=== PATIENT | male | born 1980 | race Two or more races ===

== ENCOUNTER 2020-12-18 10:59 | Outpatient (REF) | payer OTHER, SELFPAY | END 2020-12-18 11:00 | disposition home or self-care (01) | LOC: HO.LAB 10:59 | PROVIDERS: Visit Provider Internal Medicine | DX: Z20.822 Contact with and (suspected) exposure to COVID-19 (principal) | CPT/HCPCS: C9803; U0003; U0005 ==

== ENCOUNTER 2021-02-23 02:29 | Emergency (ER) | payer OTHER, SELFPAY ==
[2021-02-23] VITALS (7 sets, daily range): BP systolic 161–203; BP diastolic 99–117; PULSE 60–72; RESP 12–18; TEMP 36.3–36.6; O2SAT 97–98; BMI 45.6
--- NOTE | ~2021-02-23 | CT_ITS ---
EXAMINATION: CT RIGHT ELBOW CLINICAL INFORMATION: Evaluate for tendon rupture COMPARISON: None Specifically, no radiographs for comparison TECHNIQUE: Multidetector CT. Examination of the right elbow was performed without contrast. Reformatting in multiple planes. This CT examination was performed using dose optimization techniques as appropriate, variously including the following: *Automated exposure control *Adjustment of mA and/or kV according to patient size (this includes techniques or standardized protocols for targeted exams where dose is matched to indication/reason for exam; i.e. extremities or head) *Use of iterative reconstruction technique ESTIMATED DOSE: DLP 226 mGy-cm. FINDINGS: There is no acute fracture demonstrated. No significant hemarthrosis. There is no loose body. CT is not sensitive in detecting tendon abnormalities. There is some soft tissue stranding associated with the region of the triceps insertion. There may be some overlying skin thickening. No gross disruption of the triceps attachment. CT/CT elbow RT wo con IMPRESSION: No definite fracture or dislocation. No opaque loose body. Soft tissue stranding around the olecranon. No gross complete tendon disruption is demonstrated. Please note that tendon pathology is not optimally visualize using CT. MRI may be helpful Clinical correlation and direct radiographic correlation may be helpful
[2021-02-23] MEDS: Acetaminophen 325 MG TABLET 650 MG PO (05:21)
[2021-02-23] MEDS: Ketorolac Tromethamine 60 MG/2 ML VIAL IM (05:24)
--- NOTE | 2021-02-23 05:32 | PC.NURSE ---
PT REPORTS HE WAS MOVING A TV, FELT A POP AND EXPERIENCED RIGHT UPPER ARM PAIN. PT UNABLE TO EXTEND AT ELBOW JOINT. RIGHT HAND IS STARTING TO SWELL. PT DOES NOT HAVE LARGE AMOUNT OF SWELLING UNDER SKIN IN BICEP AREA.
--- NOTE | 2021-02-23 06:01 | PC.NURSE ---
PT ABLE TO LAY ON STRETCHER AND TRY TO FALL ASLEEP. REPORTS SOME RELIEF FROM MEDICATION.
--- NOTE | 2021-02-23 06:36 | ED_ITS ---
HPI - Extremity Problem General Chief complaint: Extremity Injury, Upper Stated complaint: R Arm pain Time Seen by Provider: 02/23/21 06:25 Source: patient Mode of arrival: ambulatory Limitations: no limitations History of Present Illness HPI Narrative: Patient comes emergency room complaining of right arm pain. Patient states he was to attempting to mount a television, patient over stretch his arm, heard a loud popping, complaining of intense pain in the forearm anterior aspect. Patient denies elbow pain, no wrist or shoulder pain. Patient states he has intense pain when he flexes his arm in the bicipital area and on the distal aspect below the elbow Related Data Allergies Allergy/AdvReac Type Severity Reaction Status Date / Time No Known Allergies Allergy Unverified 02/02/20 15:23 Review of Systems Review of Systems: Constitutional : No Weight loss, No Fever, No Chills, No Night Sweats, No Fatigue, No Malaise ENT/Mouth : No Hearing loss, No Ear Pain, No Nasal Congestion, No Sinus Pain, No Hoarseness, No sore throat, No Rhinorrhea, No Swallowing Difficulty Eyes: No Eye Pain, No Swelling, No Redness, No Foreign Body, No Discharge, No Vision Changes Cardiovascular : No Chest Pain, No SOB, No Dyspnea on Exertion, No Orthopnea, No Edema, No Palpitations Respiratory : No Cough, No Sputum, No Wheezing, No Smoke Exposure, No Dyspnea Gastrointestinal : No Nausea, No Vomiting, No Diarrhea, No Constipation, No abdominal Pain, No Hematochezia, No Melena Genitourinary : no irregular bleeding, No Dysuria, No Urinary Frequency, No Hematuria, No Urinary Incontinence, No Urgency, No Flank Pain, No Urinary Flow Changes, No Hesitancy Musculoskeletal complaining of forearm pain volar aspect, No Myalgias, No Joint Swelling Skin : No Skin Lesions, No rash Neuro : No Weakness, No Numbness, No Paresthesias, No Loss of Consciousness, No Dizziness, No Headache Psych : No Anxiety/Panic, No Depression, No SI/HI/AH/VH, No Social Issues, Heme/Lymph: No Bruising, No Bleeding,No Lymphadenopathy Endocrine : No Polyuria, No Polydipsia, No Temperature Intolerance PMFSH Social History Social History Advance Directives: No Physical Exam Vital Signs: Vital Signs: Last Vital Signs Temp 97.7 F 02/23/21 03:11 Pulse 72 02/23/21 03:11 Resp 18 02/23/21 03:11 BP 175/111 H 02/23/21 03:11 Pulse Ox 98 02/23/21 03:11 Body Mass Index 45.6 Const: Other: Appearance: Alert. Oriented X3. No acute distress. Eyes: Pupils equal, round and reactive to light. ENT: Pharynx normal. Neck: Normal inspection. Neck supple. No lymph nodes noted. No crepitus CVS: Normal heart rate and rhythm. Pulses normal. Normal S1 and S2 Respiratory: No respiratory distress. Breath sounds normal. No Wheezing. No rales Abdomen: Soft and nontender. No rigidity. No distention. Skin: Skin warm and dry. Normal skin color. Normal skin turgor. Extremities: No lower extremity edema. Pain to palpation on the forearm volar aspect, no pain to palpation over elbow/wrist/shoulder Neuro: Oriented X 3. No motor deficit. No sensory deficit. Moving all extermities. No slurred speech. Course Course Course Narrative: It is possible that patient may have a tendon rupture. CT scan pending. Sign-out given to . Patient will likely need to follow-up with orthopedics Discharge Plan Discharge Clinical Impression: Forearm pain Patient Disposition: Home, Self-Care Instructions: Arm Pain (ED) Additional Instructions: Please follow-up with your primary care physician tomorrow. If you have any worsening or new symptoms, please return to the emergency room or call 911 Referrals: Kaylee Nassar PA-C [Physician [employer] Commissioner] - 2 days
--- NOTE | 2021-02-23 08:49 | ED_ITS ---
HPI - Extremity Problem General Chief complaint: Extremity Injury, Upper Stated complaint: R Arm pain Time Seen by Provider: 02/23/21 06:25 Source: patient Mode of arrival: ambulatory Limitations: no limitations Related Data Allergies Allergy/AdvReac Type Severity Reaction Status Date / Time No Known Allergies Allergy Unverified 02/02/20 15:23 [facility] Social History Social History Advance Directives: No Physical Exam Vital Signs: Vital Signs: Last Vital Signs Temp 97.7 F 02/23/21 03:11 Pulse 72 02/23/21 03:11 Resp 16 02/23/21 06:58 BP 175/111 H 02/23/21 03:11 Pulse Ox 98 02/23/21 03:11 Body Mass Index 45.6 MDM - Extremity (Nontraumatic) MDM Narrative Medical decision making narrative: CT scan of the elbow showed no evidence of fracture. Will have patient follow-up outpatient with orthopedics. Tendon injury cannot be excluded. Currently patient is in stable condition. Skin intact. Sensation intact. Distal motor intact. In stable condition. Discharge Plan Discharge Clinical Impression: Forearm pain Qualifiers: Laterality: right Qualified Code(s): M79.631 - Pain in right forearm Patient Disposition: Home, Self-Care Instructions: Arm Pain (ED) Additional Instructions: Please follow-up with your primary care physician tomorrow. If you have any worsening or new symptoms, please return to the emergency room or call 911 Referrals: Kaylee Nassar PA-C [Physician Clinical Sciences Professor] - 2 days Stand Alone Forms: Work/School Release
--- NOTE | 2021-02-23 09:04 | PC.NURSE ---
Patient awake and alert. skin pwd, resp even and non labored. patient hypertensive, states he hasnt taken his morning meds yet. Medications and doses confirmed with . Dr Tan aware
[2021-02-23] MEDS: lisinopriL 40 MG TABLET PO (09:14)
[2021-02-23] MEDS: hydroCHLOROthiazide 25 MG TABLET PO (09:15)
[2021-02-23] MEDS: amLODIPine Besylate 10 MG TABLET PO (09:15)
== END 2021-02-23 12:12 | disposition home or self-care (01) ==
PROVIDERS: Emergency Provider Emergency Medicine
DX: M79.631 Pain in right forearm (principal); Z79.899 Other long term (current) drug therapy
CPT/HCPCS: 73200; 96372; 99284; J1885

== ENCOUNTER 2021-04-23 14:37 | Outpatient (REF) | payer OTHER, SELFPAY ==
[2021-04-23 15:46] LABS: COVID-19 Test Negative (Negative)
== END 2021-04-23 14:38 | disposition home or self-care (01) ==
LOC: HO.LAB 14:37
PROVIDERS: Visit Provider Internal Medicine
DX: Z20.822 Contact with and (suspected) exposure to COVID-19 (principal)
CPT/HCPCS: 36415; 87635; C9803

== ENCOUNTER 2022-08-22 01:32 | Emergency (ER) | payer OTHER, SELFPAY ==
[2022-08-22 01:33] VITALS: BP 146/103; PULSE 104; RESP 18; TEMP 36.6; O2SAT 96; BMI 49.9
[2022-08-22 01:37] VITALS: BP 161/102
[2022-08-22 02:18] LABS: MANUAL DIFF FLAG NO
[2022-08-22 02:20] LABS: Basophils Percent Auto 0.2 % (0-2); Eosinophils Absolute Auto 0.3 X10*3/uL (0.0-0.4); Eosinophils Percent Auto 2.8 % (0-4); Hemoglobin 12.9 g/dl (14.0-18.0); Imm Gran Abs Auto 0.02 X10*3/uL (0.00-0.03); Imm Gran Pct Auto 0.2 % (0.0-0.4); Lymphocytes Absolute Auto 3.6 X10*3/uL (1.2-4.9); Lymphocytes Percent Auto 36.8 % (20-40); Mean Corpuscular HGB Conc 33.9 g/dl (31.0-36.0); Mean Corpuscular Hemoglobin 28.4 pg (27.0-33.0); Mean Corpuscular Volume 83.7 fL (80.0-98.0); Mean Platelet Volume 12.3 fL (9.4-12.4); Monocytes Absolute Auto 0.8 X10*3/uL (0.1-1.2); Monocytes Percent Auto 7.9 % (2-11); Neutrophils Percent Auto 52.1 % (45-73); Platelet Count 204 X10*3/uL (160-400); Red Blood Count 4.54 X10*6/uL (4.60-5.80); Red Cell Distribution Width 13.6 % (11.0-16.0); White Blood Count 9.7 X10*3/uL (4.8-10.8)
--- NOTE | 2022-08-22 02:22 | MHC.EDTECH ---
PT made aware that urine sample is needed. PT states he does not need to go at the moment
[2022-08-22 02:40] LABS: Alanine Aminotransferase 39 U/L (0-40); Albumin Level 3.7 g/dL (3.5-5.0); Alkaline Phosphatase 102 U/L (39-117); Anion Gap 10 (12-20); Aspartate Amino Transferase 18 U/L (5-37); Bilirubin Direct < 0.2 mg/dL (0.0-0.5); Bilirubin Total 0.3 mg/dL (0.0-1.0); Blood Urea Nitrogen 19 mg/dL (9-16); Calcium 8.8 mg/dL (8.4-10.2); Carbon Dioxide 28 mmol/L (22-29); Chloride 106 mmol/L (96-108); Estimated Glomerular Filt Rate > 60; Glucose Random 136 mg/dL (60-115); Lipase 15 U/L (8-78); Potassium 3.6 mmol/L (3.3-5.1); Sodium 140 mmol/L (135-145); Total Protein 6.3 g/dL (6.5-8.0)
[2022-08-22 03:51] VITALS: BP 138/89; PULSE 82; RESP 17; TEMP 36.6; O2SAT 98
[2022-08-22 04:27] LABS: Appearance Urine Clear; Color Urine Yellow; Glucose Urine UA Negative (Negative); Leukocyte Esterase Urine Negative (Negative); Nitrite Urine Negative (Negative); Specific Gravity - Urine >= 1.030 (1.005-1.025); Urine Blood Negative (Negative); Urine Ketones Trace mg/dL (Negative); Urine Protein Trace mg/dL (Neg-Trace)
--- NOTE | 2022-08-22 05:50 | ED.BACK ---
HPI - Back Pain/Injury General Chief Complaint: Back Pain/Injury Stated Complaint: Flank pain Time Seen by Provider: 08/22/22 05:42 Source: patient Mode of arrival: ambulatory Limitations: no limitations History of Present Illness HPI Narrative: 42-year-old male who presents emergency department for evaluation of left lower back pain that radiates to his left thigh. Patient states he has been having pain on off for months. He states that over the past 3 days the pain is been constant. He describes as a pressure-like pain with a burning in his left thigh. He denied numbness or weakness. He denied loss of bowel or bladder control. He denied fever, chills, nausea, vomiting or diarrhea. The patient states he did take some ibuprofen yesterday with no relief his pain. He denies any injury. Related Data Previous Rx's Medication Instructions Recorded acetaminophen 500 mg tablet 1,000 mg PO Q6H PRN fever or pain 08/22/22 (Tylenol Extra Strength) #20 tabs cyclobenzaprine 10 mg tablet 10 mg PO TID PRN muscle pain or 08/22/22 spasm #20 tabs ibuprofen 400 mg tablet 400 mg PO TID PRN fever or pain 08/22/22 #30 tabs Allergies Allergy/AdvReac Type Severity Reaction Status Date / Time No Known Allergies Allergy Verified 08/22/22 01:37 Review of Systems Review of Systems: Yes all other systems are reviewed and are negative [facility] Past Medical History [facility] Narrative: Past medical history: Hypertension, asthma. Past surgical history: None. Social history: Denies tobacco, alcohol and drug use. Social History Social History Alcohol intake: current Alcohol intake frequency: holidays/special occasions only Alcohol type: wine Smoked in Last 30 Days: No Use of substances other than those prescribed or required for medical reasons: No Advance Directives: No Advance Directives Information Provided: Yes Physical Exam Vital Signs: Vital Signs: Last Vital Signs Temp 98 F 08/22/22 03:51 Pulse 82 08/22/22 03:51 Resp 17 08/22/22 03:51 BP 138/89 08/22/22 03:51 Pulse Ox 98 08/22/22 03:51 O2 Del Method Room Air 08/22/22 03:51 BMI result Body Mass Index 49.9 Const: Other: Awake, alert, male patient, pleasant, cooperative in no distress, elevated BMI 49.9 HEENT: Head: Yes normal to inspection, Yes normocephalic and Yes atraumatic Ears: external ears normal General nose exam: Normal external nose present Face and sinus: Yes normal facial exam Mouth: Normal oral and palatal mucosa present Throat: Yes posterior oropharynx normal Eyes: General: appearance normal, both eyes and all related structures Pupils: Equal, round and reactive pupils present Neck: Neck: Yes normal visual inspection, Yes no lymphadenopathy, Yes trachea midline and Yes supple Chest: Chest palpation & inspection: normal inspection of the chest and normal palpation of entire chest wall Resp: Effort & Inspection: normal respiratory effort and able to speak in complete sentences Auscultation: clear to auscultation bilaterally Cardio: Rate: regular rate Rhythm: regular rhythm Heart sounds: S1 normal heart sound present, S2 normal heart sound present and no murmurs GI: Inspection: Yes normal to inspection Palpation (GI): Soft to palpation, nontender and no guarding Auscultation: normal bowel sounds Back/Spine/Pelvis: Other: Patient has tenderness palpation of his left-sided paraspinal muscles in the lumbar sacral area, there is no point vertebral tenderness, has positive straight leg raise on the left the negative straight leg raise on the right Skin: General skin exam: no rashes or lesions noted Neuro: Cranial nerves: Yes CN's II-XII intact bilaterally and Yes Equal, round and reactive pupils present Cognition (Neuro): normal cognition Motor exam (neuro): 5/5 motor strength present throughout Extrem: General: Yes normal to inspection Psych: Appearance: grossly normal Speech and movement: Normal speech and movement present Affect: normal affect Thought content: Normal thought content present Medical Decision Making Medical Decision Making MDM Narrative: 42-year-old male who presents emergency department for evaluation of left lower back pain radiating to his left thigh times several months with increased pain over the past 3 days. Patient has had no systemic symptoms. He has had no loss of bowel or bladder control. Vital signs did reveal an elevated blood pressure of 146/103 but he does have essential hypertension. He also had at elevated pulse of 104. Patient's exam did reveal pain with palpation of the left paraspinal muscles lumbar sacral area as well as a positive left straight leg raise. Patient's neurologic exam is otherwise nonfocal. My interpretation the patient's laboratory evaluation is as follows: CBC was normal, CMP revealed an elevated glucose of 136 otherwise unremarkable. Lipase was normal. Urinalysis was negative. Patient's presentation is most consistent with sciatica and I did discuss this with him. Patient was advised to take Tylenol and ibuprofen for his pain. He is also prescribed Flexeril for pain and spasm. He was given printed and verbal instructions discharged home. Differential Diagnosis Differential diagnosis includes was not limited to sciatica, lumbar radiculopathy, degenerative joint disease, degenerative disc disease Lab Data 08/22/22 02:14 08/22/22 02:14 Labs: Lab Results 08/22/22 08/22/22 08/22/22 Range/Units 02:14 02:14 04:20 WBC 9.7 (4.8-10.8) X10*3/uL RBC 4.54 L (4.60-5.80) X10*6/uL Hgb 12.9 L (14.0-18.0) g/dl Hct 38.0 L (42.0-52.0) % MCV 83.7 (80.0-98.0) fL MCH 28.4 (27.0-33.0) pg MCHC 33.9 (31.0-36.0) g/dl RDW 13.6 (11.0-16.0) % Plt Count 204 (160-400) X10*3/uL MPV 12.3 (9.4-12.4) fL Immature Gran % (Auto) 0.2 (0.0-0.4) % Neut % (Auto) 52.1 (45-73) % Lymph % (Auto) 36.8 (20-40) % [place] % (Auto) 7.9 (2-11) % Eos % (Auto) 2.8 (0-4) % Baso % (Auto) 0.2 (0-2) % Lymph # (Auto) 3.6 (1.2-4.9) X10*3/uL [place] # (Auto) 0.8 (0.1-1.2) X10*3/uL Eos # (Auto) 0.3 (0.0-0.4) X10*3/uL Baso # (Auto) 0.0 (0.0-0.2) X10*3/uL Abs Immat Gran (auto) 0.02 (0.00-0.03) X10*3/uL Absolute Neuts (auto) 5.0 (2.0-8.3) x10*3/uL Absolute Nucleated RBC 0.000 (0.0-0.012) X10*3/uL Nucleated RBC % (auto) 0.0 (0.0-0.2) /100WBC Sodium 140 (135-145) mmol/L Potassium 3.6 (3.3-5.1) mmol/L Chloride 106 (96-108) mmol/L Carbon Dioxide 28 (22-29) mmol/L Anion Gap 10 L (12-20) BUN 19 H (9-16) mg/dL Creatinine 0.98 (0.5-1.4) mg/dL Estim Creat Clear Calc 156.0 Estimated GFR > 60 Random Glucose 136 H (60-115) mg/dL Calcium 8.8 (8.4-10.2) mg/dL Total Bilirubin 0.3 (0.0-1.0) mg/dL Direct Bilirubin < 0.2 (0.0-0.5) mg/dL AST 18 (5-37) U/L ALT 39 (0-40) U/L Alkaline Phosphatase 102 (39-117) U/L Total Protein 6.3 L (6.5-8.0) g/dL Albumin 3.7 (3.5-5.0) g/dL Lipase 15 (8-78) U/L Urine Color Yellow Urine Appearance Clear Urine pH 6.0 (5.0-9.0) Ur Specific [place] >= 1.030 H (1.005-1.025) Urine Protein Trace (Neg-Trace) mg/dL Urine Glucose (UA) Negative (Negative) mg/dL Urine Ketones Trace (Negative) mg/dL Urine Blood Negative (Negative) Urine Nitrite Negative (Negative) Ur Leukocyte Esterase Negative (Negative) Discharge Plan Discharge Clinical Impression: Sciatica Qualifiers: Laterality: left Qualified Code(s): M54.32 - Sciatica, left side Patient Disposition: Home, Self-Care Instructions: Sciatica (ED) Additional Instructions: Your laboratory evaluation was unremarkable. Your urine test was negative for infection. Your symptoms are consistent with inflammation of the sciatic nerve (sciatica) Take ibuprofen 400 mg pills, 2 pills every 6 hours as needed for pain. Take Tylenol (acetaminophen) 500 mg pills, 2 pills every 6 hours as needed for pain. Take Flexeril (cyclobenzaprine) 10 mg pills, 1 pill every 6-8 hours as needed for pain or spasm. This medication will make you sleepy. Do not drive or work while taking this medication. Follow-up with your doctor in 2 days. Please return to the emergency department if your symptoms get worse or if you develop any symptoms that are concerning to you. Prescriptions: New cyclobenzaprine 10 mg tablet 10 mg PO TID PRN (Reason: muscle pain or spasm) Qty: 20 0RF acetaminophen [Tylenol Extra Strength] 500 mg tablet 1,000 mg PO Q6H PRN (Reason: fever or pain) Qty: 20 0RF ibuprofen 400 mg tablet 400 mg PO TID PRN (Reason: fever or pain) Qty: 30 0RF
[2022-08-22 06:01] VITALS: BP 148/96; PULSE 83; RESP 16; TEMP 36.6; O2SAT 97
== END 2022-08-22 06:34 | disposition home or self-care (01) ==
PROVIDERS: Emergency Provider Emergency Medicine Emergency Medical Services
DX: M54.32 Sciatica, left side (principal); M54.50 Low back pain, unspecified; Z79.899 Other long term (current) drug therapy
CPT/HCPCS: 36415; 80048; 80076; 81003; 83690; 85025; 99283; 99284

== ENCOUNTER 2022-11-26 22:48 | Emergency (ER) | payer OTHER, SELFPAY ==
--- NOTE | ~2022-11-26 | CT_ITS ---
EXAMINATION: CT HEAD WITHOUT CONTRAST CLINICAL INFORMATION: Left facial numbness, tingling COMPARISON: None available. TECHNIQUE: Contiguous axial imaging was performed from the skull base to vertex without intravenous administration of contrast. This CT examination was performed using dose optimization techniques as appropriate, variously including the following: *Automated exposure control *Adjustment of mA and/or kV according to patient size (this includes techniques or standardized protocols for targeted exams where dose is matched to indication/reason for exam; i.e. extremities or head) *Use of iterative reconstruction technique DLP: 1429 mGy-cm FINDINGS: There is no evidence of acute intracranial hemorrhage or territorial infarction. No abnormal mass-effect or midline shift is seen. Gonzalez to white matter differentiation is well preserved. No extra-axial fluid collections are identified. The ventricles are normal in size. There is no abnormal attenuation within the brain parenchyma. The osseous structures and soft tissues are normal. The mastoid air cells and visualized portions of the paranasal sinuses are well-aerated. CT/CT head/brain wo IV con IMPRESSION: No acute intracranial pathology.
--- NOTE | ~2022-11-26 | CT_ITS ---
EXAMINATION: CT ANGIOGRAM OF THE CHEST WITH AND WITHOUT CONTRAST (CT PULMONARY ANGIOGRAM FOR PE) CLINICAL INFORMATION: Reason for Exam Chest pain, shortness of breath, hypotensive COMPARISON: Chest x-ray 11/26/2022 TECHNIQUE: Prior to contrast administration, noncontrast localization images were obtained. Subsequently, multidetector volumetric imaging was performed from the thoracic inlet to below the diaphragms following the administration of 100 mL Omnipaque 350 intravenous contrast. No contrast reaction reported Sagittal, coronal, and MIP oblique sagittal reformatted images were obtained on the CT workstation, uploaded to PACS, and reviewed. This CT examination was performed using dose optimization techniques as appropriate, variously including the following: *Automated exposure control *Adjustment of mA and/or kV according to patient size (this includes techniques or standardized protocols for targeted exams where dose is matched to indication/reason for exam; i.e. extremities or head) *Use of iterative reconstruction technique Total exam dose-length product 1429 mGy-cm FINDINGS: QUALITY OF STUDY/CONTRAST BOLUS: Satisfactory. PULMONARY ARTERIES: No central or proximal segmental pulmonary embolus is seen. There is suboptimal opacification of the more distal vasculature which limits evaluation of these vessels. THORACIC AORTA: No aneurysm. LUNG: No regions of consolidation bilaterally. There is a 3 mm left lower lobe nodule on image 269/525 laterally. PLEURA: No pleural effusion or pneumothorax. MEDIASTINUM: The visualized thyroid gland is unremarkable. There are subcentimeter mediastinal lymph nodes within the range of normal variation. Cardiac size is within normal limits; no pericardial effusion. No evidence of septal bowing or right heart strain. CORONARY ARTERY CALCIFICATION: Trace calcification suspected along the LAD. CHEST WALL/AXILLA: No axillary or internal mammary lymphadenopathy. OSSEOUS STRUCTURES: Degenerative changes are present most prominently in the lower thoracic spine. UPPER ABDOMEN: There is hypoattenuation of the visualized liver suggesting steatosis. No reflux of contrast into the hepatic veins to suggest elevated right heart pressures. CT/CT angio chest PE protocol IMPRESSION: 1. No central or proximal segmental pulmonary embolus identified. Suboptimal opacification of the more distal vasculature limits evaluation of these vessels. 2. Coronary artery calcifications. Correlation with cardiac risk factors is recommended. 3. Left lower lobe 3 mm lung nodule, nonspecific. According to the UPDATED 2017 Fleischner Society recommendations, the advised follow-up imaging for solid nodules < 6 mm is: LOW RISK PATIENT: No routine follow-up. HIGH RISK PATIENT: Optional CT at 12 months. VTE: negative.
--- NOTE | ~2022-11-26 | XR_ITS ---
EXAMINATION: XR CHEST CLINICAL INFORMATION: Cough COMPARISON: 03/14/2013 TECHNIQUE: 2 views of the chest were obtained. FINDINGS: The lungs are clear with no focal consolidation. No evidence of pneumothorax, pulmonary edema, or pleural effusions. The cardiomediastinal silhouette is unremarkable. No acute osseous findings. XR/XR chest 2V IMPRESSION: No acute cardiopulmonary findings.
[2022-11-26 23:04] VITALS: BP 98/68; PULSE 126; RESP 18; TEMP 36.6; O2SAT 96; BMI 49.7
--- NOTE | 2022-11-26 23:15 | ECG_ITS ---
Test Reason : CP Blood Pressure : / mmHG Vent. Rate : 110 BPM Atrial Rate : 110 BPM P-R Int : 144 ms QRS Dur : 100 ms QT Int : 352 ms P-R-T Axes : 058 050 -15 degrees QTc Int : 476 ms Sinus tachycardia T wave abnormality, consider inferior ischemia Abnormal ECG When compared with ECG of 14-MAR-2013 07:50, ST now depressed in Inferior leads T wave inversion more evident in Inferior leads Referred By: Tammy Rashid Electronically Signed By:JOHN WEBB MD
--- NOTE | 2022-11-26 23:38 | ED_ITS ---
HPI - Neuro Symptoms/Deficit General Chief Complaint: Neuro Symptoms/Deficit Stated Complaint: Left side jaw pain Time Seen by Provider: 11/26/22 23:13 Source: patient Mode of arrival: ambulatory History of Present Illness HPI Narrative: 42-year-old male with history of hypertension, borderline diabetes , and presents with 2-3 days of intermittent chest pain that is associated with left jaw discomfort as well as tingling along the left side of his face and also states that the pain goes into his left shoulder, most recent discomfort occurred while he was driving and is now somewhat subsided. 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 Related Data Previous Rx's Medication Instructions Recorded acetaminophen 500 mg tablet 1,000 mg PO Q6H PRN fever or pain 08/22/22 (Tylenol Extra Strength) #20 tabs cyclobenzaprine 10 mg tablet 10 mg PO TID PRN muscle pain or 08/22/22 spasm #20 tabs ibuprofen 400 mg tablet 400 mg PO TID PRN fever or pain 08/22/22 #30 tabs Allergies Allergy/AdvReac Type Severity Reaction Status Date / Time No Known Allergies Allergy Verified 08/22/22 01:37 Review of Systems Review of Systems: Pertinent positives and negatives as stated in HPI PMFSH Past Medical History Source: nursing notes reviewed Social History Social History Alcohol intake: current Alcohol intake frequency: holidays/special occasions only Alcohol type: wine Advance Directives: No Advance Directives Information Provided: Yes Physical Exam Vital Signs: Vital Signs: Last Vital Signs Temp 97.2 F 11/27/22 01:38 Pulse 87 11/27/22 01:38 Resp 13 11/27/22 01:38 BP 128/82 11/27/22 01:38 Pulse Ox 97 11/27/22 01:38 O2 Del Method Room Air 11/27/22 01:38 BMI result Body Mass Index 49.7 VITAL SIGNS: Reviewed. GENERAL: Elevated BMI, Well developed, well nourished, in no acute distress. HEAD: Normocephalic/atraumatic, EYES: PERRLA, EOMI EARS: Ext canals without abnormality, TMs non-bulging and non-erythematous NOSE: Nares patent bilateral OROPHARYNX: no oral lesions noted, posterior pharynx clear and non-erythematous without noted tonsillar enlargement/erythema/exudates NECK: Supple, no adenopathy LUNGS: Normal breath sounds. No adventitious sounds or accessory muscle use. SpO2<96> CARDIOVASCULAR: Regular rate and rhythm without noted murmurs, no JVD or lower extremity edema. ABDOMEN: Soft, non-tender, non-distended with bowel sounds. MUSCULOSKELETAL: No tenderness, deformities, or effusions noted on gross inspection. EXTREMITIES: No cyanosis, clubbing or edema. SKIN: Inspection of the skin reveals no rashes, but diaphoretic NEUROLOGIC: Alert and oriented x 4. Strength and sensation to light touch were grossly intact x 4, no facial asymmetry, no pronator drift. Medications Administered Discontinued Medications Generic Name Dose Route Start Last Admin Trade Name Freq PRN Reason Stop Dose Admin Aspirin 324 mg 11/26/22 23:37 11/26/22 23:58 Aspirin 81 Mg Tab.Chew PO 11/26/22 23:38 324 mg ONCE ONE Administration Iohexol 100 ml 11/27/22 00:46 11/27/22 00:47 Iohexol 350 Mg/Ml 100 Ml Infus..Btl IV 11/27/22 00:47 100 ml ONCE ONE Administration Medical Decision Making Medical Decision Making [facility] Narrative: 42-year-old male with history and clinical presentation, DDX: ACS, PE, carotid dissection, low clinical suspicion for herpes zoster or tick related illness. Gave 324 mg of aspirin as EKG demonstrates ST depressions inferior distribution. Heart score: 4 I reviewed all investigations and serial troponins are elevated but flat an EKG remains unchanged other than patient's heart rate has improved without IV fluids. Hematologic indices are grossly within normal limits, D-dimer is negative which for the corroborates this CT angio with PE protocol also negative, no evidence of fluid overload. Chemistry indices are grossly within normal limits. Noncontrast head CT without evidence intracranial hemorrhage, patient is otherwise nonfocal. I have some suspicion that this may be combination anxiety, but patient certainly has risk factors and currently has a follow-up appointment for further cardiac workup. Pain is completely resolved and he is otherwise discharged home in stable condition. Differential Diagnosis Differential Diagnoses: The differential diagnosis associated with the presentation includes Please see the discussion above Admission/Observation Consideration of admission/observation: Escalation of care including admission/o bservation considered Lab Data [facility] Lab Attestation statement: I reviewed the patient's lab results. Please see the discussion above 11/26/22 23:43 11/26/22 23:43 Labs: Lab Results 11/26/22 11/26/22 11/26/22 Range/Units 23:43 23:43 23:43 WBC 8.6 (4.8-10.8) X10*3/uL RBC 5.12 (4.60-5.80) X10*6/uL Hgb 14.5 (14.0-18.0) g/dl Hct 43.2 (42.0-52.0) % MCV 84.4 (80.0-98.0) fL MCH 28.3 (27.0-33.0) pg MCHC 33.6 (31.0-36.0) g/dl RDW 14.2 (11.0-16.0) % Plt Count 234 (160-400) X10*3/uL MPV 12.9 H (9.4-12.4) fL Immature Gran % (Auto) 0.2 (0.0-0.4) % Neut % (Auto) 55.2 (45-73) % Lymph % (Auto) 34.0 (20-40) % [place] % (Auto) 8.7 (2-11) % Eos % (Auto) 1.7 (0-4) % Baso % (Auto) 0.2 (0-2) % Lymph # (Auto) 2.9 (1.2-4.9) X10*3/uL [place] # (Auto) 0.8 (0.1-1.2) X10*3/uL Eos # (Auto) 0.2 (0.0-0.4) X10*3/uL Baso # (Auto) 0.0 (0.0-0.2) X10*3/uL Abs Immat Gran (auto) 0.02 (0.00-0.03) X10*3/uL Absolute Neuts (auto) 4.7 (2.0-8.3) x10*3/uL Absolute Nucleated RBC 0.000 (0.0-0.012) X10*3/uL Nucleated RBC % (auto) 0.0 (0.0-0.2) /100WBC PT (10.0-13.1) SEC INR (0.9-1.1) D-Dimer High Sensitivty NG/ML Sodium 144 (135-145) mmol/L Potassium 3.5 (3.3-5.1) mmol/L Chloride 107 (96-108) mmol/L Carbon Dioxide 24 (22-29) mmol/L Anion Gap 17 (12-20) BUN 22 H (9-16) mg/dL Creatinine 1.20 (0.5-1.4) mg/dL Estim Creat Clear Calc 127.0 Estimated GFR > 60 Random Glucose 104 (60-115) mg/dL Calcium 9.9 D (8.4-10.2) mg/dL Total Bilirubin 0.4 (0.0-1.0) mg/dL AST 32 (5-37) U/L ALT 65 H (0-40) U/L Alkaline Phosphatase 96 (39-117) U/L Troponin I High Sens 5.1 (<3.5-35.0) ng/L Total Protein 7.7 (6.5-8.0) g/dL Albumin 4.2 (3.5-5.0) g/dL 11/26/22 11/27/22 Range/Units 23:58 01:58 WBC (4.8-10.8) X10*3/uL RBC (4.60-5.80) X10*6/uL Hgb (14.0-18.0) g/dl Hct (42.0-52.0) % MCV (80.0-98.0) fL MCH (27.0-33.0) pg MCHC (31.0-36.0) g/dl RDW (11.0-16.0) % Plt Count (160-400) X10*3/uL MPV (9.4-12.4) fL Immature Gran % (Auto) (0.0-0.4) % Neut % (Auto) (45-73) % Lymph % (Auto) (20-40) % [place] % (Auto) (2-11) % Eos % (Auto) (0-4) % Baso % (Auto) (0-2) % Lymph # (Auto) (1.2-4.9) X10*3/uL [place] # (Auto) (0.1-1.2) X10*3/uL Eos # (Auto) (0.0-0.4) X10*3/uL Baso # (Auto) (0.0-0.2) X10*3/uL Abs Immat Gran (auto) (0.00-0.03) X10*3/uL Absolute Neuts (auto) (2.0-8.3) x10*3/uL Absolute Nucleated RBC (0.0-0.012) X10*3/uL Nucleated RBC % (auto) (0.0-0.2) /100WBC PT 12.3 (10.0-13.1) SEC INR 1.1 (0.9-1.1) D-Dimer High Sensitivty < 150 NG/ML Sodium (135-145) mmol/L Potassium (3.3-5.1) mmol/L Chloride (96-108) mmol/L Carbon Dioxide (22-29) mmol/L Anion Gap (12-20) BUN (9-16) mg/dL Creatinine (0.5-1.4) mg/dL Estim Creat Clear Calc Estimated GFR Random Glucose (60-115) mg/dL Calcium (8.4-10.2) mg/dL Total Bilirubin (0.0-1.0) mg/dL AST (5-37) U/L ALT (0-40) U/L Alkaline Phosphatase (39-117) U/L Troponin I High Sens 2.7 (<3.5-35.0) ng/L Total Protein (6.5-8.0) g/dL Albumin (3.5-5.0) g/dL Independent Interpretation I performed an independent interpretation of an: EKG Interpretation: Sinus tachycardia, HR-110, ST abnormalities, patient is noted to have low blood pressure, PA/QRS/QTC is within normal limits Sinus rhythm, HR-75, no STEMI, PA/QRS/QTC is within normal limits, when compared to EKG from 02/2010 there are no significant changes. Radiology Impression Radiologist Impression: No pneumonia, no VTE, otherwise my interpretation is in agreement with radiology's impression. External Record Review External record reviewed: Outpatient record and Prior outpatient labs Chronic Conditions Patient?s care impacted by: Diabetes and Hypertension Critical Care Time Critical Care Time Critical Care Time: Yes Total Critical Care Time: 30 Attestation: I personally attest to this time spent taking care of the patient. Discharge Plan Discharge Clinical Impression: Chest pain, Anxiety Patient Disposition: Home, Self-Care Instructions: Chest Pain (ED), Anxiety (ED) Additional Instructions: 1. Resume all home medications as prescribed. 2. Please follow-up with your primary care provider by calling the office in the morning. 3. Keep your scheduled cardiac follow-up appointment. Return to the ER for any worsening symptoms. Prescriptions: No Action cyclobenzaprine 10 mg tablet 10 mg PO TID PRN (Reason: muscle pain or spasm) Qty: 20 0RF acetaminophen [Tylenol Extra Strength] 500 mg tablet 1,000 mg PO Q6H PRN (Reason: fever or pain) Qty: 20 0RF ibuprofen 400 mg tablet 400 mg PO TID PRN (Reason: fever or pain) Qty: 30 0RF
[2022-11-26 23:47] LABS: MANUAL DIFF FLAG NO
[2022-11-26 23:51] LABS: Basophils Percent Auto 0.2 % (0-2); Eosinophils Absolute Auto 0.2 X10*3/uL (0.0-0.4); Eosinophils Percent Auto 1.7 % (0-4); Hematocrit 43.2 % (42.0-52.0); Hemoglobin 14.5 g/dl (14.0-18.0); Imm Gran Abs Auto 0.02 X10*3/uL (0.00-0.03); Imm Gran Pct Auto 0.2 % (0.0-0.4); Lymphocytes Absolute Auto 2.9 X10*3/uL (1.2-4.9); Mean Corpuscular HGB Conc 33.6 g/dl (31.0-36.0); Mean Corpuscular Hemoglobin 28.3 pg (27.0-33.0); Mean Corpuscular Volume 84.4 fL (80.0-98.0); Mean Platelet Volume 12.9 fL (9.4-12.4); Monocytes Absolute Auto 0.8 X10*3/uL (0.1-1.2); Monocytes Percent Auto 8.7 % (2-11); Neutrophils Absolute Auto 4.7 x10*3/uL (2.0-8.3); Neutrophils Percent Auto 55.2 % (45-73); Platelet Count 234 X10*3/uL (160-400); Red Blood Count 5.12 X10*6/uL (4.60-5.80); Red Cell Distribution Width 14.2 % (11.0-16.0); White Blood Count 8.6 X10*3/uL (4.8-10.8)
[2022-11-26] MEDS: Aspirin 81 MG TAB.CHEW 324 MG PO (23:58)
--- NOTE | 2022-11-27 | PC.NURSE ---
Pt a&o, no sob, or chest pain at this time, medicated per Mar. Will continue to monitor.
[2022-11-27 00:06] LABS: Alanine Aminotransferase 65 U/L (0-40); Albumin Level 4.2 g/dL (3.5-5.0); Alkaline Phosphatase 96 U/L (39-117); Anion Gap 17 (12-20); Aspartate Amino Transferase 32 U/L (5-37); Bilirubin Total 0.4 mg/dL (0.0-1.0); Blood Urea Nitrogen 22 mg/dL (9-16); Calcium 9.9 mg/dL (8.4-10.2); Carbon Dioxide 24 mmol/L (22-29); Chloride 107 mmol/L (96-108); Estimated Glomerular Filt Rate > 60; Glucose Random 104 mg/dL (60-115); Potassium 3.5 mmol/L (3.3-5.1); Sodium 144 mmol/L (135-145); Total Protein 7.7 g/dL (6.5-8.0)
[2022-11-27 00:12] LABS: Troponin-I High Sensitivity 5.1 ng/L (<3.5-35.0)
[2022-11-27 00:29] LABS: INTERNATIONAL NORM RATIO 1.1 (0.9-1.1); Prothrombin Time 12.3 SEC (10.0-13.1)
--- NOTE | 2022-11-27 00:29 | PC.NURSE ---
Pt a&o , no sob or chest pain at this time, pt able to speak in full sentences, neuro intact, pt able to walk to the bathroom with a steady gait, pt placed on bedside monitor. no sign of distress.
[2022-11-27] MEDS: iohexoL 350 MG/ML 100 ML INFUS..BTL IV (00:47)
[2022-11-27 00:49] LABS: D Dimer High Sensitivity < 150 NG/ML
[2022-11-27 01:38] VITALS: BP 128/82; PULSE 87; RESP 13; TEMP 36.2; O2SAT 97
[2022-11-27 02:24] LABS: Troponin-I High Sensitivity 2.7 ng/L (<3.5-35.0)
--- NOTE | 2022-11-27 02:29 | ECG_ITS ---
Test Reason : CP Blood Pressure : / mmHG Vent. Rate : 075 BPM Atrial Rate : 075 BPM P-R Int : 174 ms QRS Dur : 094 ms QT Int : 392 ms P-R-T Axes : 062 047 010 degrees QTc Int : 437 ms Normal sinus rhythm Septal infarct , age undetermined Abnormal ECG When compared with ECG of 26-NOV-2022 23:24, No significant change was found Referred By: Tammy Rashid Electronically Signed By:JOHN WEBB MD
[2022-11-27 03:03] VITALS: BP 148/84; PULSE 78; RESP 14; TEMP 36.7; O2SAT 97
--- NOTE | 2022-11-27 03:05 | PC.NURSE ---
pt a&o, no sob or chest pain, no sign of distress, Reviewed discharge instructions with pt, pt verbalized understanding.No sign of distress.
== END 2022-11-27 03:07 | disposition home or self-care (01) ==
PROVIDERS: Emergency Provider Student in an Organized Health Care Education/Training Program
DX: R07.9 Chest pain, unspecified (principal); F41.9 Anxiety disorder, unspecified; E11.9 Type 2 diabetes mellitus without complications; I10 Essential (primary) hypertension; Z79.899 Other long term (current) drug therapy
CPT/HCPCS: 36415; 70450; 71046; 71275; 80053; 84484; 85025; 85379; 85610; 93005; 99284; Q9967

== ENCOUNTER → 2022-11-26 23:15 | Outpatient (BNV) | payer OTHER, SELFPAY | PROVIDERS: Emergency Provider Student in an Organized Health Care Education/Training Program; Visit Provider Internal Medicine Cardiovascular Disease | DX: R94.31 Abnormal electrocardiogram [ECG] [EKG] (principal) | CPT/HCPCS: 93010 ==

== ENCOUNTER → 2022-11-27 02:29 | Outpatient (BNV) | payer OTHER, SELFPAY | PROVIDERS: Emergency Provider Student in an Organized Health Care Education/Training Program; Visit Provider Internal Medicine Cardiovascular Disease | DX: R94.31 Abnormal electrocardiogram [ECG] [EKG] (principal) | CPT/HCPCS: 93010 ==

== ENCOUNTER → 2023-04-16 14:39 | Outpatient (BNVA) | payer OTHER, SELFPAY | PROVIDERS: Visit Provider Physician Assistant ==

== ENCOUNTER 2023-04-29 08:21 | Outpatient (AMB) | payer OTHER, SELFPAY ==
--- NOTE | 2023-04-29 10:38 | A.OFFVIS_ITS ---
Intake VS Expanded 04/29/23 10:47 Height 5 ft 11 in Weight 335 lb 4 oz BMI 46.8 Body Fat % 42.8 Body Fat Mass 143.6 Fat Free Mass 191.8 Visceral Fat Rating 27 Body Water % 40.6 Body Water Mass 136 Basal Metabolic Rate/Score 2,749 Intake Visit Reasons: [employer] BMI 46.8 Allergies No Known Allergies Allergy (Verified 04/29/23 10:38) Medication List - Last Reconciled 04/29/23 by Naveed Orr MD albuterol sulfate 90 mcg/actuation (Ventolin HFA) 2 puffs inhalation Q4-6H PRN amlodipine 10 mg PO DAILY chlorthalidone 25 mg PO DAILY hydrochlorothiazide 25 mg PO DAILY [LISINOPRIL PO] HPI [employer] BMI 46.8 HPI Details Start time: 10.30am, End time: 11.08am ?I spent 33 minutes speaking with the patient on the phone plus an additional 5 minutes reviewing and updating records for a total of 38 minutes HPI Comments History of Present Illness Details Previous weight loss efforts: self diets Wakes up: 6am, sleeps: 12am Breakfast: skips Lunch: 10am (fast food) Dinner: 5pm (chicken and vegetables, and rice) Snacks: 8am: (apples), Exercise: walking Fluids: Coffee/Tea: none, soda: none, juice: occasionally, ETOH: wine rarely PFSH Medical History (Updated 04/29/23 @ 10:42 by Naveed Orr MD) Depression Sleep apnea Asthma Hypertension Morbid obesity Surgical History (Updated 04/29/23 @ 10:42 by Naveed Orr MD) Hx laparoscopic cholecystectomy No history of previous surgery Family History (Updated 04/16/23 @ 15:29 by Elle Porter CMA) Mother No problems noted. Father No problems noted. Social History (Updated 04/16/23 @ 15:28 by Elle Porter CMA) Alcohol intake: current Alcohol intake frequency: does not drink Alcohol type: wine Patient Tobacco Use Status: Never used Tobacco Assessment & Plan Assessment & Plan (1) Morbid obesity: Code(s): E66.01 - Morbid (severe) obesity due to excess calories Plan: 1.? Plan for lap sleeve gastrectomy. If diaphragmatic or ventral hernias are present at time of surgery, these will be repaired laparoscopically as well. Risks and complications were discussed in detail including possible conversion to an open procedure, anastomotic leak, bleeding requiring transfusion, small bowel obstruction, , DVT and pulmonary embolism, cardiac, or pulmonary complications, as exterminator termite complications such as anastomotic ulcer, insufficient weight loss and vitamin deficiencies. I emphasized the importance of close follow-up, adherence to instructions and good communication. 2. Nutritional counseling. Start with 2 CELEBRATE REBUILD protein (buy at [facility] [employer] [facility]) shakes (ONE scoop EACH in 8oz low fat unsweetened almond milk each) at 7am-9am and 10am-12pm, 2 protein bars (CELEBRATE protein bars, buy at [facility] [employer] [facility]) at 1pm-3pm and 4pm-6pm, dinner at 7pm (12 forks of protein and 12 forks of salad/vegetables) AND one more protein bar after dinner at 9pm-11pm. So you do 2 protein shakes, 3 protein bars and one meal per day. Meal to include lean meat (beef, fish, pork, turkey, chicken), or moldovan yogurt, or egg whites, or beans with a salad with olive oil and fruits (berries, pears, apples, kiwi). Avoid salt, breads, potatoes, rice, pasta, desserts. 3. Each shake would be drunk slowly, like coffee in a period of 2 hours. 4. Cut each bar in 4 pieces and eat each piece in 30min ?to make each bar last 2 hours. 5. I emphasized the importance of measuring accurately the food portion and measure it when serving the food in plate 6. The meal portions include 12 full-size forks of meat and 12 full-size forks of salad. You always eat the meat portion but you can replace up to 6 forks for salad/vegetables with rice, potatoes or pasta, or a fruit ?if you like. The less you do it the better weight loss will be. 7. One full-size fork is what it can be scooped on the fork without falling aside and not what can be bit with the fork. Use regular forks like those you find in a typical restaurant. 8.? Please send me weight measurements as soon as possible and then once a week. Always include your diet and exercise plan. 9. Start walking outside daily, tracking calories with a goal of 300 calories per day, daily. Goal is to burn 2000 calories per week on exercise, which means either 300 calories daily, or 400 calories 5 days per week, or 500 calories 4 days per week, or 650 calories 3 days per week. 10. The best choice would be to purchase a stationary bike, elliptical or treadmill at home that can track calories. Let me know if you do so I can give you an exercise plan. 11.Goal is to lose at least 1.5-2lbs per week 12. Goal to lose 10% of your weight before surgery, which is about 35lbs. Ultimate weight goal: 300lbs before surgery 13. Please follow the diet plan exactly without any change. If you don't like something about the plan or you feel hungry you need to communicate with me so I can help you revise the plan. You should not change the plan yourself. Orders: Orders Insulin Today E66.01 - Morbid (severe) obesity due to excess calories, F32.A - Depression, unspecified, G47.30 - Sleep apnea, unspecified, I10 - Essential (primary) hypertension, J45.909 - Unspecified asthma, uncomplicated Hemoglobin A1c Today E66.01 - Morbid (severe) obesity due to excess calories, F32.A - Depression, unspecified, G47.30 - Sleep apnea, unspecified, I10 - Essential (primary) hypertension, J45.909 - Unspecified asthma, uncomplicated Complete Blood Count Auto Diff Today E66.01 - Morbid (severe) obesity due to excess calories, F32.A - Depression, unspecified, G47.30 - Sleep apnea, unspecified, I10 - Essential (primary) hypertension, J45.909 - Unspecified asthma, uncomplicated Lipid Panel Today E66.01 - Morbid (severe) obesity due to excess calories, F32.A - Depression, unspecified, G47.30 - Sleep apnea, unspecified, I10 - Essential (primary) hypertension, J45.909 - Unspecified asthma, uncomplicated IRON PROFILE Today E66.01 - Morbid (severe) obesity due to excess calories, F32.A - Depression, unspecified, G47.30 - Sleep apnea, unspecified, I10 - Essential (primary) hypertension, J45.909 - Unspecified asthma, uncomplicated Comprehensive Met. Panel Today E66.01 - Morbid (severe) obesity due to excess calories, F32.A - Depression, unspecified, G47.30 - Sleep apnea, unspecified, I10 - Essential (primary) hypertension, J45.909 - Unspecified asthma, uncomplicated Zinc Today E66.01 - Morbid (severe) obesity due to excess calories, F32.A - Depression, unspecified, G47.30 - Sleep apnea, unspecified, I10 - Essential (primary) hypertension, J45.909 - Unspecified asthma, uncomplicated Vitamin B1 Today E66.01 - Morbid (severe) obesity due to excess calories, F32.A - Depression, unspecified, G47.30 - Sleep apnea, unspecified, I10 - Essential (primary) hypertension, J45.909 - Unspecified asthma, uncomplicated Vitamin A Today E66.01 - Morbid (severe) obesity due to excess calories, F32.A - Depression, unspecified, G47.30 - Sleep apnea, unspecified, I10 - Essential (primary) hypertension, J45.909 - Unspecified asthma, uncomplicated Ferritin Today E66.01 - Morbid (severe) obesity due to excess calories, F32.A - Depression, unspecified, G47.30 - Sleep apnea, unspecified, I10 - Essential (primary) hypertension, J45.909 - Unspecified asthma, uncomplicated Vitamin D 25-OH Total Today E66.01 - Morbid (severe) obesity due to excess calories, F32.A - Depression, unspecified, G47.30 - Sleep apnea, unspecified, I10 - Essential (primary) hypertension, J45.909 - Unspecified asthma, uncomplicated XR chest 2V Today E66.01 - Morbid (severe) obesity due to excess calories, F32.A - Depression, unspecified, G47.30 - Sleep apnea, unspecified, I10 - Essential (primary) hypertension, J45.909 - Unspecified asthma, uncomplicated H Pylori Breath Test Today E66.01 - Morbid (severe) obesity due to excess calories, F32.A - Depression, unspecified, G47.30 - Sleep apnea, unspecified, I10 - Essential (primary) hypertension, J45.909 - Unspecified asthma, uncomplicated Vitamin B12 and Folate Today E66.01 - Morbid (severe) obesity due to excess calories, F32.A - Depression, unspecified, G47.30 - Sleep apnea, unspecified, I10 - Essential (primary) hypertension, J45.909 - Unspecified asthma, uncomplicated C Reactive Protein Today E66.01 - Morbid (severe) obesity due to excess calories, F32.A - Depression, unspecified, G47.30 - Sleep apnea, unspecified, I10 - Essential (primary) hypertension, J45.909 - Unspecified asthma, uncomplicated TSH reflex Free T4 Today E66.01 - Morbid (severe) obesity due to excess calories, F32.A - Depression, unspecified, G47.30 - Sleep apnea, unspecified, I10 - Essential (primary) hypertension, J45.909 - Unspecified asthma, uncom plicated US abdomen comp w elastography Today E66.01 - Morbid (severe) obesity due to excess calories, F32.A - Depression, unspecified, G47.30 - Sleep apnea, unspecified, I10 - Essential (primary) hypertension, J45.909 - Unspecified asthma, uncomplicated ECG 12 lead EKG Today E66.01 - Morbid (severe) obesity due to excess calories, F32.A - Depression, unspecified, G47.30 - Sleep apnea, unspecified, I10 - Essential (primary) hypertension, J45.909 - Unspecified asthma, uncomplicated FL upper GI w air Today E66.01 - Morbid (severe) obesity due to excess calories, F32.A - Depression, unspecified, G47.30 - Sleep apnea, unspecified, I10 - Essential (primary) hypertension, J45.909 - Unspecified asthma, uncomplicated Referrals Behavioral Health Referral E66.01 - Morbid (severe) obesity due to excess calories, F32.A - Depression, unspecified, G47.30 - Sleep apnea, unspecified, I10 - Essential (primary) hypertension, J45.909 - Unspecified asthma, uncomplicated Nutrition/Dietitian Referral E66.01 - Morbid (severe) obesity due to excess calories, F32.A - Depression, unspecified, G47.30 - Sleep apnea, unspecified, I10 - Essential (primary) hypertension, J45.909 - Unspecified asthma, uncomplicated Telehealth Telehealth Location of provider rendering services: practice address Location of patient: address on file Patient Identification confirmed using: Name, : Yes Telehealth method: voice only Patient verbally consented to treatment: Yes Patient verbally consented to billing insurance company: Yes Patient informed of any privacy concerns related to visit: Yes Minutes spent on Phone/Video with Pt.: 38 Coding Level of Care Code Tele New Pt Level 3 (14529) Diagnoses Morbid obesity E66.01 Time Spent (min) 38
[2023-04-29 10:47] VITALS: BMI 46.8
== END 2023-04-29 11:09 | disposition home or self-care (01) ==
PROVIDERS: Visit Provider Surgery
DX: E66.01 Morbid (severe) obesity due to excess calories (principal)
CPT/HCPCS: 99203

== ENCOUNTER → 2023-04-29 08:21 | Outpatient (BNVA) | payer OTHER, SELFPAY | PROVIDERS: Visit Provider Surgery ==

== ENCOUNTER 2023-05-01 14:51 | Outpatient (REF) | payer OTHER, SELFPAY ==
--- NOTE | ~2023-05-01 | XR_ITS ---
EXAMINATION: XR CHEST CLINICAL INFORMATION: Morbid (severe) obesity due to excess calories COMPARISON: Chest 11/26/2022 TECHNIQUE: 2 views of the chest were obtained. FINDINGS: No significant abnormality is noted involving the heart, lungs, mediastinum, bony thorax or soft tissues. XR/XR chest 2V IMPRESSION: No acute cardiopulmonary disease.
--- NOTE | 2023-05-01 14:58 | ECG_ITS ---
Test Reason : morbid obesity Blood Pressure : / mmHG Vent. Rate : 095 BPM Atrial Rate : 095 BPM P-R Int : 162 ms QRS Dur : 094 ms QT Int : 358 ms P-R-T Axes : 065 048 -04 degrees QTc Int : 449 ms Normal sinus rhythm Inferior ST-T changes- consider ischemia Abnormal ECG When compared with ECG of 27-NOV-2022 02:29, Inferior ST-T changes Referred By: Naveed Orr Electronically Signed By:Silvio Velasco
== END 2023-05-01 14:52 | disposition home or self-care (01) ==
LOC: HO.XRAY 14:51
PROVIDERS: Visit Provider Surgery
DX: E66.01 Morbid (severe) obesity due to excess calories (principal); I10 Essential (primary) hypertension; J45.909 Unspecified asthma, uncomplicated; G47.30 Sleep apnea, unspecified; F32.A Depression, unspecified
CPT/HCPCS: 71046; 93005

== ENCOUNTER → 2023-05-01 14:58 | Outpatient (BNV) | payer OTHER, SELFPAY | PROVIDERS: Visit Provider Internal Medicine Cardiovascular Disease | DX: R94.31 Abnormal electrocardiogram [ECG] [EKG] (principal) | CPT/HCPCS: 93010 ==